=== PATIENT | male | born 1950 | race Caucasian/White ===

== ENCOUNTER → 2017-06-01 | Outpatient (CLI) | payer MEDICARE, BC ==
[~2017-06-01] MED LIST: ACHYD1T PO; AMIT25TA9 PO; ASP325T PO; CATHETER FLUSH 10 ML SYR IV PRN; CIPR500T78 PO; EZET10TA5 PO; FUROSEMIDE 40 MG/4 ML INJ (LASIX) IVP ONE; FUROSEMIDE 40 MG/4 ML INJ (LASIX) ONE; LISI5TAB PO; NF-ESOM40C PO; NITR50CA4 PO
--- NOTE | 2017-06-01 16:34 | Diagnostic Imaging Report ---
EXAMINATION: Renal scan with Lasix Indication: Right UPJ obstruction. TECHNIQUE: After the intravenous administration of 5 mCi of Tc 99m MAG3, imaging over the abdomen and pelvis was obtained. Multiple phases include the flow images, renal the junction with the split function measurements obtained. This was followed by administration of Lasix 40 mg is administered intravenously, with post-Lasix the images are performed. The area of interest for measurements of radiotracer uptake over the renal collecting system with the assessment of a excretion performed. FINDINGS: There is asymmetric decreased perfusion over the right kidney. The split renal function is the percent on the right is 27 % and is 73 % on the left. Normal excretion from the left kidney is seen. The right kidney accumulates radiotracer in the renal pelvic area and after Lasix administration there is significant emptying into the bladder. IMPRESSION: Findings suggestive of moderate decreased function in the right kidney without evidence of high-grade obstruction. Dictated by: Dictated on workstation # [id number]
== END ==
LOC: CARD 09:01
PROVIDERS: ATTEND Urology
DX: N28.9 Disorder of kidney and ureter, unspecified (principal)
CPT/HCPCS: 78708

== ENCOUNTER 2020-10-21 05:29 | Outpatient (RCR) | payer MEDICARE, BC ==
[~2020-10-21] VITALS: Ht 172.7 cm; Wt 58.1 kg
[~2020-10-21 05:29] MED LIST changes: +ATEN25TA PO; -CATHETER FLUSH 10 ML SYR IV PRN; -FUROSEMIDE 40 MG/4 ML INJ (LASIX) IVP ONE; -FUROSEMIDE 40 MG/4 ML INJ (LASIX) ONE; +LISI-729 PO; +PANT40TA52 PO; +TMSL.4C PO
== END 2020-10-21 13:30 | disposition home or self-care (01) ==
LOC: PREOP 05:29
PROVIDERS: ATTEND Surgery
DX: Z01.812 Encounter for preprocedural laboratory examination (principal); K21.9 Gastro-esophageal reflux disease without esophagitis; Z20.822 Contact with and (suspected) exposure to COVID-19
CPT/HCPCS: 87635

== ENCOUNTER 2020-10-23 09:40 | Day surgery (SDC) | payer MEDICARE, BC ==
[2020-10-23] VITALS (13 sets, daily range): BP systolic 109–148; BP diastolic 63–85
[~2020-10-23] VITALS: Ht 172.7 cm; Wt 58.1 kg
[2020-10-23] MEDS ORDERED: NS IV 500 ML 500 ML ONE (09:41)
[2020-10-23] MEDS ORDERED: fentaNYL INJ 100 MCG/2 ML AMP IVP ONE (09:45)
[2020-10-23] MEDS ORDERED: LIDOCAINE JELLY 2% 6 ML SYRINGE MM PRN (09:45)
[2020-10-23] MEDS ORDERED: MIDAZOLAM 5 MG/5 ML (VERSED) VIAL IV ONE (09:45)
[2020-10-23] MEDS ORDERED: HURRICAINE EXT TUBE (BENZOCAINE) XX PRN (09:45)
[2020-10-23] MEDS ORDERED: NS IV 500 ML 500 ML IV PRN (09:45)
[2020-10-23] MEDS ORDERED: fentaNYL INJ 100 MCG/2 ML AMP ONE (10:59)
[2020-10-23] MEDS ORDERED: HURRICAINE EXT TUBE (BENZOCAINE) ONE (10:59)
[2020-10-23] MEDS ORDERED: MIDAZOLAM 5 MG/5 ML (VERSED) VIAL ONE ×2 (10:59)
[2020-10-23] MEDS ORDERED: LIDOCAINE JELLY 2% 6 ML SYRINGE ONE (10:59)
--- NOTE | 2020-10-23 12:27 | Conscious Sedation/ASA ---
Conscious Sedation Pre-Proced Time 11:15 ASA Score 2 For ASA 3 and 4: Consider anesthesia and medical clearance. Also, for patients with a history of failed moderate sedation consider anesthesia. Airway Lungs Heart ASA score ASA 1: a normal healthy patient ASA 2: a patient with a mild systemic disease (mid diabetes, controlled hypertension, obesity ASA 3: a patient with a severe systemic disease that limits activity (angina, COPD, prior Myocardial infarction) ASA 4: a patient with an incapacitating disease that is a constant threat to life (CHF, renal failure) ASA 5: a moribund patient not expected to survive 24 hrs. (ruptured aneurysm) ASA 6: a declared brain- patient whose organs are being harvested. For emergent operations, add the letter E after the classification Mallampati Classification Grade 2 Sedation Plan Analgesia, Amnesia, Plan communicated to team members, Discussed options with patient/fam, Discussed risks with patient/fam The patient is an appropriate candidate to undergo the planned procedure, sedation, and anesthesia. The patient immediately re-assessed prior to indication. JULIANO ART MD Oct 23, 2020 12:27
--- NOTE | 2020-10-23 12:28 | Progress Note-Pre Operative ---
Pre-Operative Progress Note H&P Reviewed The H&P was reviewed, patient examined and no changes noted. Date Seen by Provider: Oct 23, 2020 Time Seen by Provider: 11:15 Date H&P Reviewed: Oct 23, 2020 Time H&P Reviewed: :15 Pre-Operative Diagnosis: JULIANO BECKFORD MD Oct 23, 2020 12:27
--- NOTE | 2020-10-23 12:29 | Progress Note-Post Operative ---
Post-Operative Progess Note Surgeon (s)/Integrity Manager (s) Surgeon JULIANO ART MD Integrity Manager: none Pre-Operative Diagnosis GERD Post-Operative Diagnosis reflux esophagitis(stage 2), intact wrap and no recurrent hiatal hernia, moderate gastritis. Procedure & Operative Findings Date of Procedure 10/23/20 Procedure Performed/Findings EGD with bx. Anesthesia Type cs Estimated Blood Loss Estimated blood loss (mL): minimal Specimens/Packing Specimens Removed ge jxn, antrum JULIANO ART MD Oct 23, 2020 12:29
[2020-10-23] MEDS ORDERED: ACETAMINOPHEN 325 MG TABLET PO PRN (12:30)
[2020-10-23] MEDS ORDERED: OMEP40CA27 PO (12:30)
[2020-10-23] MEDS ORDERED: ONDANSETRON 4 MG/2 ML (SDV) Z0FRAN IVP PRN (12:30)
[2020-10-23] MEDS ORDERED: HYDROcodone/APAP 5 MG/325 MG (LORTAB) TAB PO PRN (12:30)
[2020-10-23] MEDS ORDERED: morphine INJ 10 MG/ML 1ML (SYR OR VIAL) IVP PRN ×2 (12:30)
--- NOTE | 2020-10-23 12:31 | Discharge Inst-Surgical ---
D/C Lap Instructions-KIDO New, Converted, or Re-Newed RX: RX on Chart Follow Up PRN Activity as tolerated High Fiber Diet 25g or more per day Avoid Alcohol, Caffeine, Spicy [place] and Acid foods. Drink 64 fluid oz or more of fluids per day. Symptoms to Report: Fever over 101 degree F, Nausea/Vomiting If any problems/questions: Contact your physician or go to Emergency Room JULIANO ART MD Oct 23, 2020 12:31
--- NOTE | 2020-10-23 18:34 | OPERATIVE REPORT ---
DATE OF SERVICE: 10/23/2020 ATTENDING PRIMARY CARE PHYSICIAN: Sergey Fu DO. PREOPERATIVE DIAGNOSIS: Gastroesophageal reflux disease. POSTOPERATIVE DIAGNOSES: Reflux esophagitis stage II, intact previous hiatal hernia repair and Tanya fundoplication, moderate gastritis more towards the stomach, antrum and pylorus. No formal ulcerations. No distal obstructions. PROCEDURES PERFORMED: EGD with biopsy. SURGEON: Juliano Art MD. ANESTHESIA: Conscious sedation. ESTIMATED BLOOD LOSS: Minimal. FINDINGS: Reflux esophagitis stage II, intact previous hiatal hernia repair and Tanya fundoplication, moderate gastritis more towards the stomach, antrum and pylorus. No formal ulcerations. No distal obstructions. DISPOSITION: The patient tolerated the procedure well. INDICATIONS FOR PROCEDURE: The patient is a 70-year-old male referred over to us for epigastric burning sensation, which he has had before; however, has worsened in the past two months. He also does have occasional nausea; however, no vomiting. He had severe reflux in the past; however, underwent a hiatal hernia repair as well as a Tanya fundoplication in 2009. DESCRIPTION OF PROCEDURE: The patient was brought to the endoscopy suite and laid in the left lateral decubitus position. After adequate IV pain and sedative medications and conscious sedation anesthesia, the mouthpiece was applied. The endoscope was placed in the mouth, visualizing the pharynx and hypopharyngeal region. Vocal cords, epiglottis and vallecula identified and appeared to be normal. The endoscope was then gently intubated and the esophageal opening and esophagus insufflated. The endoscope was then advanced to the first, second and third portion of the esophagus to the level of the GE junction, a reflux esophagitis stage II was identified. There were no ulcers or strictures identified in this region. A biopsy was taken of the GE junction with visualization of good hemostasis. The endoscope was then advanced in the stomach and endoscope retroflexed visualizing an intact previous hiatal hernia repair as well as a Tanya fundoplication. There was more of a moderate severity gastritis more focally at the stomach, antrum and pylorus, where biopsies were taken with forceps with visualization of good hemostasis. The endoscope was then advanced to the pylorus and the first and second portion of the duodenum, which appeared normal with no distal obstructions or ulcerations. The endoscope was then slowly withdrawn while taking a second look and suctioning of residual air with no additional findings. The patient tolerated the procedure well. We will recommend the necessary lifestyle and diet accommodation with small and more frequent meals, avoidance of eating at night as well as head elevation while lying supine. He also needs to avoid caffeinated beverages, spicy, greasy and acidic foods. He is currently on Protonix 40 mg daily; however, we will also add omeprazole 40 mg daily for one to be taken in the morning and one at night in hopes of helping with his symptomatology. Job ID: [id number] DocumentID: [id number] Dictated Date: 10/23/2020 11:54:52 [employer] And Former Date: 10/23/2020 18:33:02 Dictated By: JULIANO ART MD
== END 2020-10-23 12:55 | disposition home or self-care (01) ==
LOC: ENDO 09:40
PROVIDERS: ATTEND Surgery
DX: K21.00 Gastro-esophageal reflux disease with esophagitis, without bleeding (principal); K29.50 Unspecified chronic gastritis without bleeding; K44.9 Diaphragmatic hernia without obstruction or gangrene; I10 Essential (primary) hypertension; M19.90 Unspecified osteoarthritis, unspecified site; N40.0 Benign prostatic hyperplasia without lower urinary tract symptoms; Z90.49 Acquired absence of other specified parts of digestive tract; Z79.899 Other long term (current) drug therapy; Z88.8 Allergy status to other drugs, medicaments and biological substances; Z98.890 Other specified postprocedural states; Z20.822 Contact with and (suspected) exposure to COVID-19; Z88.1 Allergy status to other antibiotic agents; Z80.0 Family history of malignant neoplasm of digestive organs